=== PATIENT | female | born 1990 | race Two or more races ===

== ENCOUNTER 2025-07-31 11:10 | Emergency (ER) | payer MEDICAID, SELFPAY ==
[2025-07-31 11:49] VITALS: BP 144/91; PULSE 95; RESP 18; TEMP 36.7; O2SAT 97
--- NOTE | 2025-07-31 14:31 | PD.EDFMALE ---
ED Female Urogenital RME/HPI General Chief complaint: Urogenital-Female Stated complaint: PAINFUL URINATION Time Seen by Provider: 07/31/25 11:14 Arrival date/time: 07/31/25 11:10 Related Data Previous Rx's ?Medication ?Instructions ?Recorded docusate sodium 100 mg capsule 100 mg PO BID PRN Constipation #30 02/05/21 (Colace) caps ferrous sulfate 325 mg (65 mg 325 mg PO QDAY #30 tabs 02/05/21 iron) tablet (Iron (ferrous sulfate)) Allergies Allergy/AdvReac Type Severity Reaction Status Date / Time No Known Allergies Allergy Verified 07/31/25 11:13 Course Orders Category Date Time Status CT abdomen pelvis wo con Stat Exams 07/31/25 15:19 Ordered US pelvic complete Stat Exams 07/31/25 15:19 Ordered HCG Qualitative,Urine Stat Lab 07/31/25 14:55 Completed UA, C/S IF [Urinalysis, C/S if Indicated] Stat Lab 07/31/25 14:55 Completed Acetaminophen Tab [Tylenol ES Tab] Med 07/31/25 14:28 Discontinued 1,000 mg PO X1 ONE Ketorolac Inj [Toradol Inj] Med 07/31/25 14:28 Discontinued 30 mg IM X1 ONE Vital Signs Vital signs: Vital Signs Temperature 98.1 F 07/31/25 11:49 Pulse Rate 95 07/31/25 11:49 Respiratory Rate 18 07/31/25 11:49 Blood Pressure 144/91 H 07/31/25 11:49 Pulse Oximetry (%) 97 07/31/25 11:49 Oxygen Delivery Method Room Air 07/31/25 11:49 Urogenital - Female Medications / Prescriptions Medication administrations:: Medication Administration History Discontinued Medications Acetaminophen (Acetaminophen 500 Mg Tablet) 1,000 mg PO X1 ONE Stop: 07/31/25 14:29 Last Admin: 07/31/25 14:33 Dose: 1,000 mg Documented By: FLACO Ketorolac Tromethamine (Ketorolac Inj 30 Mg/Ml Vial) 30 mg IM X1 ONE Stop: 07/31/25 14:29 Last Admin: 07/31/25 14:34 Dose: 30 mg Documented By: FLACO Comments: PT DENIES Discharge Plan Prescriptions/Referrals Prescriptions/Med Rec: No Action docusate sodium [Colace] 100 mg Capsule 100 mg PO BID PRN (Reason: Constipation) Qty: 30 0RF ferrous sulfate [Iron (ferrous sulfate)] 325 mg (65 mg iron) Tablet 325 mg PO QDAY Qty: 30 0RF Referrals: No Primary/Family,Physician [Primary Care Provider] - In 1 week Patient/Caregiver Discharge Instructions Print Language: Dutch
[2025-07-31] MEDS: ACETAMINOPHEN 500 MG TABLET 1000 MG PO (14:33)
[2025-07-31] MEDS: KETOROLAC INJ 30 MG/ML VIAL IM (14:34)
[2025-07-31 15:01] LABS: Collection Type, Urine Clean Catch
[2025-07-31 15:07] LABS: Bilirubin,Urine Negative (Negative); Blood,Urine Negative (Negative); Clarity,Urine Clear (Clear/Hazy); Color,Urine Colorless (Lt Yel-Yel); Culture Indicated,Urine Not Indicated; Glucose, Urine Negative (Negative); Ketones,Urine Negative (Negative); Leukocyte Esterase,Urine Positive (Negative); Nitrite,Urine Negative (Negative); PH,Urine 6.0 (5.0-7.0); Protein,Urine Negative (Neg - Trace); RBC,Urine < 1 /hpf (0-3); Specific Gravity,Urine 1.015 (1.001-1.035); Squamous Epithelial Cell,Urine 5 /hpf (0-5); Urobilinogen,Urine Negative mg/dL (0.0-1.0); WBC,Urine 4 /hpf (0-5)
[2025-07-31 15:12] LABS: HCG Qualitative,Urine Negative
--- NOTE | 2025-07-31 15:19 | XR_ITS ---
Examination: CT abdomen and pelvis without contrast. Coronal 3-D reconstructions. Sagittal 2-D reconstructions. Date and time of exam: July 31, 2025, 1624 hours INDICATIONS: Onset lower abdominal pain today CTDI: vol (mGy): 12.9 DLP: (mGycm): 747 Technique: Axial images of the abdomen have been obtained, 3 mm slice thickness Intravenous contrast material has not been administered. Low dose protocols were performed. One or more of the following dose reduction techniques were used; automated exposure control, adjustment of the mA and/or KV according to patient size, use of iterative reconstruction technique. Findings: No visualized liver or splenic lesion Absent gallbladder No pancreatic or adrenal mass No renal or ureteral calculi, no hydronephrosis Normal appendix No bowel obstruction or diverticulitis Uterus is unremarkable Urinary bladder intact Moderate disc narrowing L5-S1 IMPRESSION: No renal or ureteral calculi, no hydronephrosis Normal appendix No bowel obstruction diverticulitis or free air
--- NOTE | 2025-07-31 15:19 | XR_ITS ---
Examination: Pelvic ultrasound, transabdominal, complete Technique: Transabdominal ultrasound of the pelvis performed using grayscale imaging Date and time of exam: July 31, 2025, 1522 hours INDICATIONS: Pelvic pain and tenderness beginning 9 days ago FINDINGS: Uterus 10.9 cm endometrial stripe 0.4 cm No uterine mass or intrauterine gestation Right ovary 3.3 cm arterial flow. Left ovary 3.4 cm arterial flow IMPRESSION: Negative examination
[2025-07-31 16:01] LABS: Basophils # (Auto) 0.0 Thou/mm3 (0.0-0.2); Basophils % (Auto) 0 % (0-2.5); Eosinophils # (Auto) 0.1 Thou/mm3 (0.0-0.5); Eosinophils % (Auto) 1 % (0-10); Hematocrit 33.3 % (36.0-46.0); Hemoglobin 9.6 g/dL (12.0-16.0); Immature Granulocytes Auto 0.05 Thou/mm3 (0.00-0.00); Lymphocytes # (Auto) 2.4 Thou/mm3 (1.0-4.8); Lymphocytes % (Auto) 29 % (10-50); Mean Corpuscular HGB Conc 28.8 g/dl (31.0-37.0); Mean Corpuscular Hemoglobin 20.1 pg (25.0-35.0); Mean Corpuscular Volume 70 fL (80-100); Monocytes # (Auto) 0.5 Thou/mm3 (0.0-0.8); Monocytes % (Auto) 6 % (0-12); Neutrophils # (Auto) 5.1 Thou/mm3 (1.8-7.7); Neutrophils % (Auto) 63 % (37-80); Nucleated Red Blood Cell # 0.00 Thou/mm3 (0.00-0.00); Nucleated Red Blood Cell % 0 /100 WBC (0); Platelet Count 356 Thou/mm3 (140-440); RDW Standard Deviation 40.5 fL (36.4-46.3); Red Blood Count 4.77 Miln/mm3 (4.00-5.20); White Blood Count 8.1 Thou/mm3 (3.6-11.0)
[2025-07-31 16:23] LABS: Alanine Aminotransferase 21 U/L (10-49); Albumin, Serum 4.4 gm/dL (3.5-5.0); Albumin/Globulin Ratio 1.7 (1.2-2.2); Alkaline Phosphatase 126 U/L (46-116); Anion Gap 10 (7-16); Aspartate Amino Transferase 19 U/L (0-34); BUN/Creatinine Ratio 17 Ratio (12-20); Bilirubin,Total 0.3 mg/dL (0.3-1.2); Blood Urea Nitrogen 10 mg/dL (9-23); Calcium 8.8 mg/dL (8.3-10.6); Calcium (Corrected) 8.8 mg/dL (8.5-10.1); Carbon Dioxide 24.1 mMol/L (20.0-31.0); Chloride 105 mMol/L (98-107); Creatinine (Component) 0.6 mg/dL (0.6-1.3); Globulin 2.6 gm/dL (2.3-3.5); Glucose 87 mg/dL (74-106); Osmolality,Calculated 275 (275-295); Potassium 3.9 mMol/L (3.4-5.1); Sodium 139 mMol/L (136-145); Total Protein 7.0 gm/dL (5.7-8.2); eGFR > 60 See Note
--- NOTE | 2025-07-31 17:24 | PD.EDRME ---
Rapid Medical Screening Exam [facility] Arrival date/time: 07/31/25 11:10 34-year-old female presents to the Emergency Department for complaint of dysuria and pelvic pain patient reports no fever nausea vomiting no headache dizziness or weakness. Chief Complaint: Urogenital-Female Time Seen by Provider: 07/31/25 11:14 Vital signs: Vital Signs Temperature 98.1 F 07/31/25 11:49 Pulse Rate 95 07/31/25 11:49 Respiratory Rate 18 07/31/25 11:49 Blood Pressure 144/91 H 07/31/25 11:49 Pulse Oximetry (%) 97 07/31/25 11:49 Oxygen Delivery Method Room Air 07/31/25 11:49 Vital signs reviewed by provider: Yes Exam: On exam patient has pain to the pelvic region Neurological: Within normal limits Abdominal: Within normal limits Pelvic: Tenderness pelvic region Clinical Impression: Lab work and imaging ordered Differentials include but not limited to UTI, cystitis, ovarian cyst, renal colic
--- NOTE | 2025-07-31 18:45 | PC.NURSE ---
CALLED CT AT 1800 TO REQUEST READ ON CT
--- NOTE | 2025-07-31 19:08 | EDNOTE_ITS ---
ED Female Urogenital RME/HPI General Chief complaint: Urogenital-Female Stated complaint: PAINFUL URINATION Time Seen by Provider: 07/31/25 11:14 Arrival date/time: 07/31/25 11:10 RME / HPI RME / HPI Narrative: 07/31/25 11:10 34-year-old female presents to the Emergency Department for complaint of dysuria and pelvic pain patient reports no fever nausea vomiting no headache dizziness or weakness. Dr. Rocha?s Main ED Evaluation: 34yo female presents to the ED for complaints of pelvic pain and dysuria. Patient states she has a history of multiple c- sections (last one being over a year ago), reporting she has pain to where the was done. No radiation or migration. Patient denies any N/V/D, fever, chills, vaginal discharge, or any other associated symptoms. NKA. Related Data Previous Rx's ?Medication ?Instructions ?Recorded docusate sodium 100 mg capsule 100 mg PO BID PRN Const ipation #30 02/05/21 (Colace) caps ferrous sulfate 325 mg (65 mg 325 mg PO QDAY #30 tabs 02/05/21 iron) tablet (Iron (ferrous sulfate)) ibuprofen 800 mg tablet 800 mg PO Q8H PRN pain #30 t abs 07/31/25 Allergies Allergy/AdvReac Type Severity Reaction Status Date / Time No Known Allergies Allergy Verified 07/31/25 11:13 Review of Systems Review of Systems Systems Reviewed: All systems reviewed, normal except as documented Past Medical History Past Medical History NEUROLOGIC: Negative Seizures CARDIAC: Negative Cardiac Disorders or Congestive Heart Failure RESPIRATORY: Negative Chronic Obstructive Pulmonary Disease (COPD) GASTROINTESTINAL: Negative Gastrointestinal Disorders GENITOURINARY: Negative Genitourinary Disorders or Renal Disease REPRODUCTIVE: Positive Previous Pregnancies; Negative Pelvic Inflammatory Disease ENDOCRINE: Negative Endocrine Disorders, Diabetes Mellitus Type 1 or Diabetes Mellitus Type 2 HEMATOLOGIC: Negative Blood Disorders OTHER HISTORY: Negative Autoimmune Disease, Blood Transfusions, Blood Transfusion Reaction, Anesthesia Reactions, MRSA, Clostridium Difficile or Cancer Family History FAMILY HISTORY: Negative Family Psychiatric Problems, Family Respiratory Disorders, Family Cardiac Disorders, Family Gastrointestinal Problems, Family Cancer, Family Surgery or Family Anesthesia Reaction Surgical History SURGICAL: Negative Section Social History SMOKING STATUS: Never smoker ED Exam Narrative Physical exam: Generally patient is alert and in no obvious distress, abdomen is obese with mild suprapubic abdominal tenderness to light palpation., Heart regular rate and rhythm, lungs clear to auscultation equal bilaterally, extremities show no edema, neurologic exam shows Scott Coma Scale of 15 Course Quality Measures none Orders Category Date Time Status CT abdomen pelvis wo con Stat Exams 07/31/25 15:19 Completed US pelvic complete Stat Exams 07/31/25 15:19 Completed CBC Stat Lab 07/31/25 15:40 Completed CMP [Comprehensive Metabolic Panel] Stat Lab 07/31/25 15:40 Completed HCG Qualitative,Urine Stat Lab 07/31/25 14:55 Completed UA, C/S IF [Urinalysis, C/S if Indicated] Stat Lab 07/31/25 14:55 Completed Acetaminophen Tab [Tylenol ES Tab] Med 07/31/25 14:28 Discontinued 1,000 mg PO X1 ONE Ketorolac Inj [Toradol Inj] Med 07/31/25 14:28 Discontinued 30 mg IM X1 ONE Vital Signs Vital signs: Vital Signs Temperature 98.1 F 07/31/25 11:49 Pulse Rate 95 07/31/25 11:49 Respiratory Rate 18 07/31/25 11:49 Blood Pressure 144/91 H 07/31/25 11:49 Pulse Oximetry (%) 97 07/31/25 11:49 Oxygen Delivery Method Room Air 07/31/25 11:49 Urogenital - Female MDM Narrative MDM Narrative:: Scribe Attestation: 07/31/25 - Karen Marcelo, am scribing for and in the presence of Dr. Rocha. I interpreted all lab work. There was nothing remarkable. Urine is not infected. is negative. CT scan done the abdomen pelvis with IV contr ast was unremarkable. Pelvic ultrasound was unremarkable. Patient may have tenderness over her old scar. I do not believe this to be of any major consequence. Patient may take ibuprofen for pain. Patient data External records reviewed:: [facility] previous records (Per chart review, patient was admitted here on 02/03/21 for PE. ) Clinical information provided by:: patient Social determinants that could affect healthcare access:: none Patient has the following chronic illnesses:: none How is presenting disease/condition affected by chronic disease/condition?: no chronic disease Evaluation data The following diagnostics were reviewed and interpreted by me:: lab results and radiology exam(s) Lab and/or radiology exams considered but not ordered:: none Interpretation Summary: [facility] Report Signed Patient: KERA YOUNG Record#: [id number] Birthdate: 1990 Age/Sex: 34 / F Location: [facility] Attending Dr: Ordering Physician: Chidi Garces NP, NP Date of Service: 07/31/25 Procedure(s): US pelvic complete Accession Number(s): [id number] cc: Mili IBARRA),Chidi CHENG; Donato Allison MD; NO PRIMARY/FAMILY,PHYSICIAN~ Examination: Pelvic ultrasound, transabdominal, complete Technique: Transabdominal ultrasound of the pelvis performed using grayscale imaging Date and time of exam: July 31, 2025, 1522 hours INDICATIONS: Pelvic pain and tenderness beginning 9 days ago FINDINGS: Uterus 10.9 cm endometrial stripe 0.4 cm No uterine mass or intrauterine gestation Right ovary 3.3 cm arterial flow. Left ovary 3.4 cm arterial flow IMPRESSION: Negative examination Dictated By: Donato Allison MD Signed By: <Electronically signed by Donato Allison MD in OV> 07/31/25 1718 [facility] Report Signed Patient: KERA YOUNG Record#: [id number] Birthdate: 1990 Age/Sex: 34 / F Location: [facility] Attending Dr: Ordering Physician: Chidi Garces NP, NP Date of Service: 07/31/25 Procedure(s): CT abdomen pelvis wo con Accession Number(s): [id number] cc: Mili IBARRA)Chidi NP; Donato Allison MD; NO PRIMARY/FAMILY,PHYSICIAN~ Examination: CT abdomen and pelvis without contrast. Coronal 3-D reconstructions. Sagittal 2-D reconstructions. Date and time of exam: July 31, 2025, 1624 hours INDICATIONS: Onset lower abdominal pain today CTDI: vol (mGy): 12.9 DLP: (mGycm): 747 Technique: Axial images of the abdomen have been obtained, 3 mm slice thickness Intravenous contrast material has not been administered. Low dose protocols were performed. One or more of the following dose reduction techniques were used; automated exposure control, adjustment of the mA and/or KV according to patient size, use of iterative reconstruction technique. Findings: No visualized liver or splenic lesion Absent gallbladder No pancreatic or adrenal mass No renal or ureteral calculi, no hydronephrosis Normal appendix No bowel obstruction or diverticulitis Uterus is unremarkable Urinary bladder intact Moderate disc narrowing L5-S1 IMPRESSION: No renal or ureteral calculi, no hydronephrosis Normal appendix No bowel obstruction diverticulitis or free air Dictated By: Donato Allison MD Signed By: <Electronically signed by Donato Allison MD in OV> 07/31/25 1850 Medications / Prescriptions Medications or Prescriptions considered but not ordered:: none Medication administrations:: Medication Administration History Discontinued Medications Acetaminophen (Acetaminophen 500 Mg Tablet) 1,000 mg PO X1 ONE Stop: 07/31/25 14:29 Last Admin: 07/31/25 14:33 Dose: 1,000 mg Documented By: FLACO Ketorolac Tromethamine (Ketorolac Inj 30 Mg/Ml Vial) 30 mg IM X1 ONE Stop: 07/31/25 14:29 Last Admin: 07/31/25 14:34 Dose: 30 mg Documented By: FLACO Comments: PT DENIES see above Consultations Consultation(s) initiated? (list below): No Diagnosis Urogenital Female Differential Diagnosis: other (See MDM) Most likely diagnosis given after review of the tests above:: see clinical impression below Admission Indicated Admission indicated?: not indicated Admission Request Was there a request for admission?: No Disposition Plan Disposition Plan: Discharge Discharge Attestation Discharge Attestation: The patient and all family members were given an opportunity to ask questions and understood the discharge instructions. Discharge instructions specifically effects, indications for sooner follow up or return to the emergency department, and the expected course of current diagnosis. Patient condition: Stable Discharge Plan Plan Patient Disposition: HOME (Self Care) Prescriptions/Referrals Prescriptions/Med Rec: New ibuprofen 800 mg tablet 800 mg PO Q8H PRN (Reason: pain) Qty: 30 0RF No Action docusate sodium [Colace] 100 mg Capsule 100 mg PO BID PRN (Reason: Constipation) Qty: 30 0RF ferrous sulfate [Iron (ferrous sulfate)] 325 mg (65 mg iron) Tablet 325 mg PO QDAY Qty: 30 0RF Referrals: No Primary/Family,Physician [Primary Care Provider] - In 1 week Problem List Clinical Impression: Pelvic pain Patient/Caregiver Discharge Instructions Education Materials: ED Pelvic Pain, Unknown Cause Additional Instructions: Ibuprofen as prescribed. Follow-up with your doctor as needed. Print Language: Swedish Stand Alone Forms: [facility] Award Info., Patient Portal Info Letter
[2025-07-31 19:09] VITALS: BP 125/85; PULSE 78; RESP 18; O2SAT 98
== END 2025-07-31 19:40 | disposition home or self-care (01) ==
PROVIDERS: Nurse Practitioner Primary Care; Emergency Provider Emergency Medicine
DX: R10.20 Pelvic and perineal pain unspecified side (principal)
CPT/HCPCS: 36415; 74176; 76856; 80053; 81001; 81025; 85025; 96372; 99284; J1885; A9270